=== PATIENT | female | born 1980 | race Two or more races ===

== ENCOUNTER 2019-08-10 15:38 | Emergency (ER) | payer SELFPAY ==
[~2019-08-10] VITALS: Ht 167.6 cm; Wt 72.6 kg
[2019-08-10 15:55] VITALS: BP 130/80
[2019-08-10] MEDS ORDERED: IBUPROFEN 800 MG TAB PO ONE (17:15)
== END 2019-08-10 18:01 | disposition home or self-care (01) ==
LOC: ER 15:38 → EDBD 15:38 → ER 18:01
DX: S39.012A Strain of muscle, fascia and tendon of lower back, initial encounter (principal); S00.03XA Contusion of scalp, initial encounter; V43.53XA Car driver injured in collision with pick-up truck in traffic accident, initial encounter; Y93.89 Activity, other specified; Y99.8 Other external cause status; Y92.89 Other specified places as the place of occurrence of the external cause
CPT/HCPCS: 70450; 72100